=== PATIENT | female | born 1970 | race African-American/Black ===

== ENCOUNTER 2016-09-09 07:24 | Emergency (ER) ==
[2016-09-09] MEDS ORDERED: TORADOL IM ONE (09:27)
--- NOTE | 2016-09-09 09:32 | PROVIDER DOCUMENTATION ---
HPI-Musculoskeletal Pain/Inj - GENERAL Chief Complaint: Back Pain Stated Complaint: BACK PAIN Time Seen by Provider: 09/09/16 09:05 Source: patient - HX OF PRESENT ILLNESS-MUSKULOSKELTAL Nature of Presenting Problem: 46 y/o BF presents to the ED with 3 day hx of R sided upper back pain radiating to R neck. Pt states she was about to fall on stairs when she grabbed the railing with her R arm and caught herself. States since then she has had increasing pain to R trapezius. States has been taking motrin and using heating pads. Pt reports she is out of her BP medications for 2 days, and requests refill. Denies bowel/bladder dysfunction, numbness. Review of Systems - Adult - REVIEW OF SYSTEMS - ADULT Constitutional: reports: no symptoms reported. denies: chills, fever Eyes: reports: no symptoms reported. denies: blurred vision, double vision Ears, Nose, Mouth & Throat: reports: no symptoms reported. denies: ear pain, nose pain Cardiovascular: reports: no symptoms reported. denies: chest pain, palpitations Respiratory: reports: no symptoms reported. denies: dyspnea on exertion, shortness of breath Gastrointestinal: reports: no symptoms reported. denies: nausea, rectal bleeding Genitourinary: reports: no symptoms reported. denies: dysuria, frequency Musculoskeletal: reports: see HPI, back pain, neck pain. denies: joint pain, joint swelling Integumentary: reports: no symptoms reported. denies: nail changes, rash Neurological: reports: no symptoms reported. denies: numbness, paresthesia Psychiatric: reports: no symptoms reported Endocrine: reports: no symptoms reported. denies: cold intolerance, heat intolerance Hematologic/Lymphatic: reports: no symptoms reported. denies: easy bruising, prolonged bleeding Allergic/Immunologic: reports: no symptoms reported All Other Systems: Reviewed and Negative Past History - Adult - PAST MEDICAL HISTORY-ADULT Review of Records: reports: Nursing Assessment Review, Medications Reviewed Major Childhood Illnesses: reports: denies history Cardiovascular: reports: HTN Respiratory: reports: denies history Gastrointestinal: reports: denies history Obstetrical/Gynecological: reports: denies history Genitourinary: reports: denies history Musculoskeletal: reports: denies history Neurological: reports: denies history Endocrine/Immune: reports: thyroid disorder Other Conditions: reports: denies history - PRIOR SURGERIES/PROCEDURES Surgical/Procedure History: reports: hysterectomy, BTL, , other (D&C) - IMMUNIZATION STATUS Childhood Immunizations: See Nurse Assessment Flu Vaccine: See Nurse Assessment - FAMILY HISTORY Family History: reviewed, not pertinent - SOCIAL HISTORY Smoking: denies Physical Exam-Injury Related - Physical Exam-Injury Related Initial Vital Signs Reviewed: Yes General Appearance: alert, mild distress Eyes: pink conjunctivae Head, Ears, Nose, Mouth & Throat: normocephalic/atraumatic Neck: supple, normal inspection, limited range of motion, tender lateral (R musculature). negative: C-spine tenderness, vertebral point tenderness Respiratory: no respiratory distress Cardiovascular: normal peripheral pulses, regular rate, rhythm Peripheral Pulses: radial (R): 2+, radial (L): 2+ Back Exam: normal inspection, no CVA tenderness, no vertebral tenderness, other (TTP R trapezius) Extremity: normal gait, normal inspection, normal capillary refill. negative: abnormal NV exam, pulse deficit Integumentary: normal color, warm/dry, blanching Neurologic: negative: aphasia, motor weakness, sensory deficit Psych/Mental Status: normal mood/affect, normal thought content, normal thought process, oriented x 3 Progress - PLAN OF CARE/RESULTS Progress/Plan/Lab Results: Orders Category Date Time Status Ketorolac [Toradol] Med 09/09/16 09:37 Discontinued 60 mg .ROUTE .STK-MED ONE Ketorolac [Toradol] Med 09/09/16 09:27 Discontinued 60 mg IM NOW ONE Vital Signs Temp Pulse Resp BP Pulse Ox 09/09/16 07:27 97.1 F L 86 16 156/93 99 latex Allergy (Severe, Verified 09/09/16 09:04) RASH Lisinopril/Hydrochlorothiazide [Lisinopril-Hctz 20-25 mg Tab] 1 each PO DAILY # 30 tablet 05/10/14 Lisinopril/Hydrochlorothiazide [Lisinopril-Hctz 20-25 mg Tab] 1 each PO DAILY # 30 tablet 09/09/16 Meloxicam [Mobic] 7.5 mg PO DAILY #30 tablet 09/09/16 Methocarbamol [Robaxin] 500 mg PO BID #30 tablet 09/09/16 Discussed medication use, heating pad use, and f/u with specialist with pt. Departure - Departure Time of Disposition Order: 09:28 DIAGNOSIS: Muscle strain, Encounter for medication refill Hypertension Qualifiers: Hypertension type: essential hypertension Qualified Code(s): I10 - Essential ( primary) hypertension Disposition: HOME 01 Certified Medical Emergency: Emergent Condition: Stable Additional Instructions: Take medications as directed. Heating pads on area as often as needed. Follow up with specialist if symptoms persist. ED Follow Up Instructions: You have been treated by a care provider in the Emergency Department. These instructions are being provided to you so you can have an understanding of how to care for yourself upon discharge. Upon discharge from the Emergency Department, you are responsible for making arrangements for follow-up care by a physician of your choice. Take all prescribed medications as directed. Return to the Emergency Department immediately for any new or worsening symptoms. You may call the Physician Referral phone number at [phone] to obtain a list of Physicians who are taking new patients. Prescriptions: Lisinopril/Hydrochlorothiazide [Lisinopril-Hctz 20-25 mg Tab] 1 each PO DAILY # 30 tablet Meloxicam [Mobic] 7.5 mg PO DAILY #30 tablet Methocarbamol [Robaxin] 500 mg PO BID #30 tablet Referrals: Filiberto Wade [Primary Care Provider] - Kalyan Simpson MD [STAFF PHYSICIAN] - Attestation - Physician/ TOMMY Attestation Patient care was provided by Advanced Practice Provider:: Yes Advanced Practice Provider:: Christine Melissa Advanced Practice Provider documentation review:: The Mid-level provider documentation, treatment plan and medical decision making was reviewed by the physician who agrees with all treatment and medical decision making by the P.
[2016-09-09] MEDS ORDERED: TORADOL ONE (09:37)
[2016-09-09 09:55] VITALS: BP 147/104
== END 2016-09-09 09:51 | disposition home or self-care (01) ==
LOC: ED 07:24
DX: S29.012A Strain of muscle and tendon of back wall of thorax, initial encounter (principal); M54.6 Pain in thoracic spine; M54.2 Cervicalgia; I10 Essential (primary) hypertension; Z76.0 Encounter for issue of repeat prescription; X58.XXXA Exposure to other specified factors, initial encounter
CPT/HCPCS: J1885

== ENCOUNTER 2017-02-11 08:40 | Inpatient (IN) ==
[2017-02-11] MEDS ORDERED: CATAPRES PO ONE (10:07)
--- NOTE | 2017-02-11 10:11 | PROVIDER DOCUMENTATION ---
This chart was entered by Della Jimenez Scribe, acting as scribe for Kristen Bustillos MD. HPI-General Adult - General Chief Complaint: Request RX Stated Complaint: DIZZY,BLOOD PRESSURE Time Seen by Provider: 02/11/17 08:53 Source: patient Allergies/Adverse Reactions: Patient Allergies Allergy/AdvReac Type Severity Reaction Status Date / Time latex Allergy Severe RASH Verified 09/09/16 09:04 Home Medications: Home Medication List Medication Instructions Recorded Confirmed Last Taken Type Lisinopril/Hydrochlorothiazide 1 each PO DAILY #30 tablet 05/10/14 09/09/1606/14 Rx [Lisinopril-Hctz 20-25 mg Tab] Lisinopril/Hydrochlorothiazide 1 each PO DAILY #30 tablet 09/09/16 Unknown Rx [Lisinopril-Hctz 20-25 mg Tab] Meloxicam [Mobic] 7.5 mg PO DAILY #30 tablet 09/09/16 Unknown Rx Methocarbamol [Robaxin] 500 mg PO BID #30 tablet 09/09/16 Unknown Rx Lisinopril/Hydrochlorothiazide 1 each PO DAILY #30 tablet 02/11/17 Unknown Rx [Lisinopril-Hctz 20-25 mg Tab] - History of Present Illness -Gen Adult Nature of Presenting Problems: Pt is 46 y/o F presents to the ED with dizziness. Pt states dizziness has been present since last night. Pt states she is out of HTN meds. Pt states has not taken HTN meds in one week. Pt denies syncopal episode. Location of Pain/Injury: reports: none Pain Radiation: reports: no radiation Quality of Pain: reports: none Severity: reports: mild Onset/Duration: reports: last night Timing: reports: still present Context/Activities at Onset: reports: light activity Modifying Factors: improves with: nothing Associated Symptoms: reports: dizziness. denies: anxiety, arm pain, back/neck pain, chest pain, constipation, cough, diaphoresis, diarrhea, EENT symptoms, fatigue, fever/chills, genitourinary problems, headaches, heartburn, joint pain , loss of appetite, malaise, muscle aches, sinus congestion/drainage, nausea, rash, seizure, shortness of breath, sensory/motor loss, pain with inspiration, swelling/mass in abdomen, syncope, vomiting, weakness, trouble walking Similar Symptoms Previously?: Yes (present since last night ) Recently seen or treated by another doctor?: No Review of Systems - Adult - REVIEW OF SYSTEMS - ADULT Constitutional: denies: chills, fever Eyes: denies: decreased vision, blurred vision, double vision Ears, Nose, Mouth & Throat: denies: ear pain, nose pain, throat pain Cardiovascular: denies: chest pain, heart murmur, irregular heart rate Respiratory: denies: cough, shortness of breath, wheezing Gastrointestinal: denies: abdominal pain, diarrhea, nausea, vomiting Genitourinary: denies: dysuria, flank pain, hematuria Musculoskeletal: denies: bone pain, joint pain, neck pain Integumentary: denies: hives, itching, rash Neurological: reports: dizziness/vertigo (dizziness). denies: headache/ migraines, numbness, seizure, syncope Psychiatric: reports: no symptoms reported Endocrine: reports: no symptoms reported Hematologic/Lymphatic: reports: no symptoms reported Allergic/Immunologic: reports: no symptoms reported All Other Systems: Reviewed and Negative Past History - Adult - PAST MEDICAL HISTORY-ADULT Review of Records: reports: Nursing Assessment Review, Medications Reviewed, Social history reviewed & non-contributory. Major Childhood Illnesses: reports: denies history Cardiovascular: reports: HTN Respiratory: reports: denies history Gastrointestinal: reports: denies history Obstetrical/Gynecological: reports: denies history Genitourinary: reports: denies history Musculoskeletal: reports: denies history Neurological: reports: denies history Psychiatric: reports: denies history Endocrine/Immune: reports: thyroid disorder Other Conditions: reports: denies history - PRIOR SURGERIES/PROCEDURES Surgical/Procedure History: reports: hysterectomy, BTL, , other (D&C) - IMMUNIZATION STATUS Childhood Immunizations: See Nurse Assessment Flu Vaccine: See Nurse Assessment - FAMILY HISTORY Family History: reviewed, not pertinent - SOCIAL HISTORY Smoking: denies Substance Use: denies Living Situation: family Physical Exam-General - PHYSICAL EXAM-ADULT Initial Vital Signs Reviewed: Yes - CONSTITUTIONAL General Appearance: appears well, alert, no apparent distress. negative: lethargic, slow to respond - EYES Eyes: PERRL/EOMI, pink conjunctivae. negative: pale conjunctivae, sunken eyes - HEAD, EARS, NOSE, MOUTH & THROAT HENMT: normocephalic/atraumatic, moist mucous membranes, normal ENT inspection. negative: angioedema, tonsillar exudate - NECK Neck: non-tender, normal inspection. negative: lymphadenopathy, tender lateral - RESPIRATORY Respiratory: chest non-tender, lungs clear, normal breath sounds. negative: crackles, stridor, increased rate - CARDIOVASCULAR Cardiovascular: normal peripheral pulses, regular rate, rhythm. negative: tachycardia, systolic murmur - GASTROINTESTINAL (ABDOMEN) Abdominal Exam: normal bowel sounds, non tender, soft. negative: distended, rebound, hernia - LYMPHATIC Lymphatic: no adenopathy, enlargement. negative: streaking - MUSCULOSKELETAL Back Exam: normal inspection, no CVA tenderness, no vertebral tenderness. negative: ecchymosis, swelling Extremity: normal range of motion, normal inspection. negative: deformity, erythema, swelling - SKIN Integumentary: normal color, normal turgor, warm/dry. negative: ecchymosis, erythema, rash - NEUROLOGIC Neurologic: grossly normal. negative: aphasia, facial droop - PSYCHIATRIC Psych/Mental Status: normal mood/affect, oriented x 3. negative: paranoid, tearful Progress - PLAN OF CARE/RESULTS Progress/Plan/Lab Results: Vital Signs - 8 hr 02/11/17 08:43 Temperature 97.2 F L Pulse Rate 81 Respiratory Rate 18 Blood Pressure 156/103 O2 Sat by Pulse Oximetry 100 Orders Category Date Time Status ua [URINALYSIS PL W/POSS RFLX CULT] [URINALYSIS] Stat Lab 02/11/17 08:53 Uncollected - REASSESSMENT Reassessment #1 Time Reassessed: 10:04 Status: other (Pt refused to do UA and further monitor and work up. Wants BP meds prescribtion and wants to go home. Denies CP/SOB/DE PAZ/LOC. 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 Return to ER if your symptoms worsen. Prescriptions: Lisinopril/Hydrochlorothiazide [Lisinopril-Hctz 20-25 mg Tab] 1 each PO DAILY # 30 tablet Referrals and Follow-Ups: None,PCP [Primary Care Provider] - - Critical Care Note This patient required my direct & personal management of CC.: No Attestation - Physician/ TOMMY Attestation Patient care was provided by Advanced Practice Provider:: No The physician spent face to face time with patient:: Yes Advanced Practice Provider documentation review:: Supervising physician onsite and consulted in the evaluation and care of this patient. The physician did have a face to face encounter with the patient. This chart was documented by the indicated scribe, (Della Jimenez Scribe) and accurately reflects the services I performed and decisions made by me, Kristen Bustillos MD, as attested by the provider's signature.
[2017-02-11] MEDS ORDERED: APRESOLINE IV ONE (10:19)
[2017-02-11] MEDS ORDERED: ASPIRIN PO STA (10:19)
--- NOTE | 2017-02-11 10:40 | EKG Report ---
Test Performed on : 02/11/2017 10:12:07 AM Test Reason : Dizziness with elevated BP Blood Pressure : / mmHG Vent. Rate : 070 BPM Atrial Rate : 070 BPM P-R Int : 180 ms QRS Dur : 082 ms QT Int : 400 ms P-R-T Axes : 020 004 -21 degrees QTc Int : 432 ms Normal sinus rhythm. Minimal voltage criteria for LVH, may be normal variant T wave abnormality, consider inferior ischemia T wave abnormality, consider anterior ischemia Abnormal ECG When compared with ECG of 07-FEB-2013 08:38, T wave inversion now evident in Inferior leads T wave inversion now evident in Anterior leads Unconfirmed Result
[2017-02-11 10:43] LABS: MANUAL DIFF NEEDED? NO
[2017-02-11 10:45] LABS: BASO% 0.5 % (0.0-0.8); EOS# 0.14 X1000 (0.0-0.7); EOS% 1.8 % (0.0-10.0); HEMATOCRIT 39.3 % (37.0-47.0); HEMOGLOBIN 12.8 g/dL (12.0-16.0); IMM GRAN# 0.01 X1000 (0.0-0.04); IMM GRAN% 0.1 % (0.0-0.5); LYMPH# 2.65 X1000 (1.2-3.4); LYMPH% 34.8 % (20.5-51.1); MCH 29.6 PG (27-31); MCHC 32.6 g/dL (33-37); MONO# 0.55 X1000 (0.11-0.59); MONO% 7.2 % (1.7-9.3); MPV 9.1 FL (7.4-10.4); NEUT% 55.6 % (42.2-75.2); PLT 366 X1000 (130-400); RBC 4.32 XMIL (4.2-5.4)
[2017-02-11 11:02] LABS: AGAP 10; ALBUMIN 3.9 g/dL (3.5-5.0); ALKALINE PHOSPHATASE 69 U/L (32-104); BUN 10 mg/dL (8-22); CALCIUM 8.8 mg/dL (8.8-10.2); CHLORIDE 96 mmol/L (98-107); CK PROFILE 127 U/L (24-173); COSMO 269; GOT 11 U/L (10-30); GPT 9 U/L (10-36); MAGNESIUM 1.5 mg/dL (1.5-2.7); POTASSIUM 3.2 mmol/L (3.5-5.1); SODIUM 135 mmol/L (136-145); TCO2 29 mmol/L (25-35); TOTAL PROTEIN 8.2 g/dL (6.3-8.3)
[2017-02-11 11:16] LABS: URINE CULTURE PL NEEDED? NO
[2017-02-11 11:18] LABS: BILIRUBIN URINE NEGATIVE (NEGATIVE); BLOOD URINE NEGATIVE (NEGATIVE); CLARITY CLEAR (CLEAR); COLOR YELLOW; GLUCOSE URINE NEGATIVE (NEGATIVE); LEUKOCYTES URINE TRACE (NEGATIVE); NITRITE URINE NEGATIVE (NEGATIVE); PH URINE 6.5; PROTEIN URINE 1+(30 mg/dL) mg/dL (NEGATIVE); UROBILINOGEN URINE NORMAL
[2017-02-11] MEDS ORDERED: KLOR-CON PO ONE (11:35)
--- NOTE | 2017-02-11 11:37 | Diag Imaging Result Doc PS360 ---
EXAM: CHEST-2 VIEWS HISTORY: CP TECHNIQUE: PA and Lateral chest x-ray COMPARISON: 05/09/2014 FINDINGS: There is cardiomegaly. The pulmonary vasculature is not congested. No infiltrate or effusion is identified. IMPRESSION: Cardiomegaly. Electronically signed by Iesha Rodriguez 02/11/2017 11:34 AM
--- NOTE | 2017-02-11 11:46 | ED EKG INTERP ---
This chart was entered by Della Jimenez Scribe, acting as scribe for Kristen Bustillos MD. EKG Interpretation - EKG Time of EKG reading by physician:: 10:12 EKG Read and Signed by:: Kristen Bustillos EKG Interpretation (*Must complete 3 of following elements*): Abnormal (T wave abnormality, consider inferior ischemia; T wave abnormality, consider anterior ischemia) Rate: 70 Rhythm: normal sinus rhythm Comments: minimal voltage criteria for LVH, may be normal variant Attestation - Physician/ TOMMY Attestation Patient care was provided by Advanced Practice Provider:: No The physician spent face to face time with patient:: Yes Advanced Practice Provider documentation review:: Supervising physician onsite and consulted in the evaluation and care of this patient. The physician did have a face to face encounter with the patient. This chart was documented by the indicated scribe, (Della Jimenez Scribe) and accurately reflects the services I performed and decisions made by me, Kristen Bustillos MD, as attested by the provider's signature.
[2017-02-11 11:54] LABS: URINE SOURCE CLEAN CATCH; URINE WBC <10 /HPF (<10)
[2017-02-11] MEDS ORDERED: NORVASC PO SCH (15:45)
[2017-02-11] MEDS ORDERED: TYLENOL PO PRN (16:37)
[2017-02-11] MEDS ORDERED: ZOFRAN IV PRN (16:37)
[2017-02-11] MEDS: PRINIVIL PO SCH (16:49)
--- NOTE | 2017-02-11 18:17 | HISTORY AND PHYSICAL ---
CHIEF COMPLAINT: Dizziness. HISTORY OF PRESENT ILLNESS: This is a 46-year-old female with hypertension poorly controlled. 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 She has had significant dizziness to the point where she has difficulty ambulating. She has been out of her blood pressure medications for about 7 days. No syncope. She denies pavel chest pain or back pain. She does have shortness of breath but she is morbidly obese. I do not think her shortness of breath has per se worsened but she does have some shortness of breath. No swelling. She does have intermittent swelling in her lower extremities also of which she takes hydrochlorothiazide for that and has been out of her medication. Workup in the ER was unremarkable except for elevated blood pressure and an abnormal EKG. She was then placed in observation for uncontrolled accelerated hypertension and her abnormal EKG. PAST MEDICAL HISTORY: Hypertension alone. PAST SURGICAL HISTORY: 1. Hysterectomy. 2. Tubal ligation. 3. . 4. D and C. SOCIAL HISTORY: No tobacco or ethanol. ALLERGIES: Latex. FAMILY HISTORY: Negative for any coronary artery disease. REVIEW OF SYSTEMS: Reviewed x10 systems and otherwise negative. PHYSICAL EXAMINATION: VITAL SIGNS: Blood pressure 154/98, heart rate of 97, respiratory 20, temperature 97.4 degrees, 99% on room air. GENERAL: A well-developed female, in no acute distress. HEAD: Normocephalic, atraumatic. EYES: Pupils equal, round, reactive to light. Extraocular movements were intact. EAR/NOSE/THROAT: She had moist mucous membranes. NECK: Supple. CARDIOVASCULAR: Regular rate and rhythm. No murmurs, gallops, or rubs. PULMONARY: Bilateral breath sounds. Clear to auscultation. GI: Soft, nontender, nondistended. Bowel sounds are positive. LABORATORY DATA: White count 7, hemoglobin and hematocrit 12 and 39, platelets 366,000. Potassium 3.2. UA was negative. Imaging: Chest x-ray showed no airspace disease, cardiomegaly, and it was a PA and lateral film. EKG showed T-wave inversions in II and III. ASSESSMENT: This is a pleasant 46-year-old female, presenting with dizziness, accelerated hypertension, abnormal EKG. 1. Accelerated hypertension. I am going to add Aldactone to her lisinopril, and we will obtain echocardiogram and monitor for blood pressure control. 2. Abnormal EKG. Baseline EKG from 2012 was normal. Now she has distinct T-wave inversions. She does have dyspnea on exertion, unclear if this is a cardiac cause. I have discussed briefly with Cardiology. We will consider Lexiscan tomorrow and follow. 3. Hypokalemia. We will supplement and follow. 4. Disposition pending her clinical status. Possibly home tomorrow if stable. cc: Curly Levine MD
[2017-02-11] MEDS: ALDACTONE PO SCH (19:31)
[2017-02-11] MEDS: AMBIEN PO PRN (20:53)
--- NOTE | 2017-02-12 06:39 | EKG Report ---
Test Performed on : 02/12/2017 05:59:00 AM Test Reason : dyspnea Blood Pressure : / mmHG Vent. Rate : 081 BPM Atrial Rate : 081 BPM P-R Int : 172 ms QRS Dur : 088 ms QT Int : 390 ms P-R-T Axes : 027 -02 -12 degrees QTc Int : 453 ms Normal sinus rhythm. Minimal voltage criteria for LVH, may be normal variant Cannot rule out Anterior infarct , age undetermined Abnormal ECG When compared with ECG of 11-FEB-2017 10:12, (Unconfirmed) No significant change was found Confirmed by Miguel Underwood MD ([id number]) on 03/04/2017 7:32:19 PM
[2017-02-12 06:49] LABS: HEMATOCRIT 36.1 % (37.0-47.0); HEMOGLOBIN 11.9 g/dL (12.0-16.0); MCH 30.2 PG (27-31); MCV 91.6 FL (81-99); MPV 9.1 FL (7.4-10.4); RBC 3.94 XMIL (4.2-5.4)
[2017-02-12 07:09] LABS: AGAP 9; BUN 14 mg/dL (8-22); CHLORIDE 102 mmol/L (98-107); COSMO 277; MAGNESIUM 1.5 mg/dL (1.5-2.7); POTASSIUM 3.7 mmol/L (3.5-5.1); SODIUM 138 mmol/L (136-145); TCO2 28 mmol/L (25-35)
[2017-02-12] MEDS: ALDACTONE PO SCH (10:50)
[2017-02-12] MEDS: PRINIVIL PO SCH (10:50)
[2017-02-12] MEDS ORDERED: LEXISCAN ONE (16:56)
--- NOTE | 2017-02-12 20:25 | Diag Imaging Result Document ---
PROCEDURE NAME: MYOCARDIAL PERF SCAN, STR/REST - 02/12/2017 STUDY: Lexiscan sestamibi. SUMMARY: The patient was administered 15.9 millicuries of technetium-99m sestamibi, after which resting cardiac images were obtained. The patient was subsequently administered Lexiscan, after which the heart rate went from 75 beats per minute to 110 beats per minute and the blood pressure went from 107/62 to 167/91. With Lexiscan, the patient denied chest discomfort. Following the administration of Lexiscan, the patient was administered 46.1 millicuries of technetium-99m labeled sestamibi, after which gated stress cardiac images were obtained. Baseline ECG demonstrates sinus rhythm and nonspecific T-wave abnormality. With Lexiscan, there were no diagnostic ST-segment changes. SPECT images were reconstructed in the short, horizontal, and vertical long axis. Review of these images demonstrated no scintigraphic evidence of inducible myocardial ischemia or infarct. Gated images demonstrate calculated left ejection fraction of 83% with symmetrical wall motion/thickening. CONCLUSIONS: 1. Adequate response to Lexiscan. 2. Clinically negative for chest pain. 3. Electrocardiographically, there were no diagnostic ST-segment changes on ECG following administration of Lexiscan. 4. Lexiscan sestamibi images demonstrate no scintigraphic evidence of inducible myocardial ischemia or prior infarcts. Normal left ventricular systolic function demonstrated. cc: MD Curly Townsend MD
[2017-02-13] MEDS: AMBIEN PO PRN (00:08)
--- NOTE | 2017-02-13 03:28 | ECHO REPORT ---
ORDER DATE: 02/11/2017 MEASUREMENTS: Left ventricular end-diastolic diameter 4.6, end systolic diameter 2.7. Posterior wall thickness 1.1, septal thickness 1.1, left atrium 3.6, aortic root 3.2. SUMMARY: 1. Fair quality study. 2. Aortic valve is trileaflet and opens normally on 2-dimensional images. Mitral, tricuspid, and pulmonic valves are without structural abnormality, with trace mitral regurgitation, mild tricuspid regurgitation, and mild pulmonic insufficiency. The estimated systolic PA pressure by Doppler is 25-30 mmHg. The aortic root is normal in size. 3. Normal left ventricular chamber size, with borderline concentric left hypertrophy is demonstrated. Estimated left ventricular ejection fraction appears to be at least 65%. No regional wall motion abnormalities are evident. Doppler suggests grade 1 left ventricular diastolic dysfunction. Left atrium is upper normal in size. Right atrium and right ventricle are normal in size, with normal right ventricular systolic function. 4. No pericardial effusion. 5. Appearance of inferior vena cava suggests normal central venous pressure. 6. Sinus rhythm during study. CONCLUSIONS: 1. Mild tricuspid regurgitation, with normal systolic PA pressure by Doppler. 2. Borderline concentric left hypertrophy, with estimated left ejection fraction at least 65%. 3. Grade 1 left ventricular diastolic dysfunction. cc: MD Curly Townsend MD
[2017-02-13] MEDS: ALDACTONE PO SCH (08:58)
[2017-02-13] MEDS: PRINIVIL PO SCH (08:58)
[2017-02-13 15:36] VITALS: BP 141/89
--- NOTE | 2017-02-14 08:43 | DISCHARGE SUMMARY ---
ADMISSION DATE: 02/11/2017 DISCHARGE DATE: 02/13/2017 DISCHARGE DIAGNOSES: 1. Hypertension, accelerated. 2. Abnormal EKG with shortness of breath. ADMISSION DIAGNOSES: 1. Hypertension, accelerated. 2. Abnormal EKG with shortness of breath. Briefly, this is 46-year-old female, obese who presents with hypertension, having run out of medications. She was seen and placed on several medications, and had improvement in her blood pressure. EKG showed new T-wave inversions. Echocardiogram showed borderline concentric left ventricular hypertrophy 65%, with diastolic dysfunction. Electrocardiogram did showed some T-wave inversions in her inferior leads. Lexiscan was obtained because of abnormal EKG and that was negative. Lexiscan did not show any significant ischemia. EF was intact. The patient was stable. DISCHARGE PHYSICAL EXAMINATION: Vital Signs: Blood pressure at the time of discharge was 141/89. Cardiovascular: Regular rate and rhythm. Pulmonary: Bilateral breath sounds clear to auscultation. GI: Soft, nontender, nondistended. Bowel sounds are positive. DISPOSITION: The patient felt was stable, dizziness had resolved and she was discharged in stable condition. DISCHARGE MEDICATIONS: Lisinopril/hydrochlorothiazide I discontinued in favor of lisinopril 20 daily, and Aldactone 25 daily, just because of her hyperkalemia. DISCHARGE CONDITION: Stable. FOLLOWUP: She was encouraged to follow up with her PCP, Dr. Wade, and he can adjust her medications further, but I did encourage her to be compliant with her medications. TIME SPENT: Greater than 30-minute discharge. cc: Curly Levine MD
== END 2017-02-13 18:00 | disposition home or self-care (01) ==
LOC: P.MEDSURG 08:40 → P.ED 08:40 → OBSVTOIN 12:33
PROVIDERS: ATTEND Internal Medicine